=== PATIENT | female | born 1975 | race Caucasian/White ===

== ENCOUNTER 2016-10-19 07:19 | Emergency (ER) | payer OTHER ==
[~2016-10-19 07:19] MED LIST: ADVIL200 M1 PO; ALPRAZOLAM PO; AMOXICILLIN500 M1 PO; DOC-Q-LACE100 MG PO; DOLOBID500 MG PO; EXCEDRIN MIGRA1 EACH; FIORICET1 TAB PO; IBUPROFEN PO; IBUPROFEN800 MG PO; KLONOPIN1 MG PO; KLONOPIN2 MG PO; MEDROL PO; MOTRIN600 MG PO; NAPROSYN500 MG PO; NEURONTIN300 MG PO; NO MEDICATIONS; NORCO 7.5-3251 EACH PO; PAMELOR PO; PAXIL PO; PHENERGAN25 M1 PO; PHENERGAN25 MG PO; PRILOSEC PO; PRILOSEC20 MG PO; PROCTOFOAM-HC F10 GM PR; TRAMADOL PO; ULTRAM PO; VICODIN 5/500 T1 TAB PO; ZITHROMAX PO; ZOFRAN ODT4 MG/UDTAB PO
== END 2016-10-19 08:40 | disposition home or self-care (01) ==
LOC: SED 07:19
DX: G43.909 Migraine, unspecified, not intractable, without status migrainosus (principal); Z90.710 Acquired absence of both cervix and uterus; Z79.899 Other long term (current) drug therapy
CPT/HCPCS: 36415; 96361; 96374; 96375; 99284; J1200; J1885; J2765